=== PATIENT | female | born 1960 | race African-American/Black ===

== ENCOUNTER 2017-04-03 13:44 | Emergency (ER) | payer OTHER ==
[~2017-04-03] VITALS: Ht 165.1 cm; Wt 103.4 kg
[2017-04-03 13:57] VITALS: BP 141/81
== END 2017-04-03 15:43 | disposition home or self-care (01) ==
LOC: ER 13:44
DX: J02.9 Acute pharyngitis, unspecified (principal); D17.21 Benign lipomatous neoplasm of skin and subcutaneous tissue of right arm; Z88.0 Allergy status to penicillin; Z88.2 Allergy status to sulfonamides

== ENCOUNTER 2020-07-09 18:45 | Emergency (ER) | payer OTHER ==
[~2020-07-09] VITALS: Ht 167.6 cm; Wt 103.4 kg
[2020-07-09 19:29] LABS: Basophils # (auto) 0 10 ^3/uL (0-0.2); Basophils % (auto) 0.9 % (0.0-2.0); Eosinophils # (auto) 0.1 10 ^3/uL (0-0.8); Eosinophils % (auto) 1.8 % (0.0-7.0); Hematocrit 34.7 % (36.0-46.0); Lymphocytes # (auto) 1.7 10 ^3/uL (0.4-5.4); Lymphocytes % (auto) 32.4 % (10.0-50.0); Mean Corpuscular Hemoglobin 27.4 pg (28.0-32.0); Mean Corpuscular Hgb Conc. 31.9 g/dL (32.0-36.0); Mean Corpuscular Volume 85.9 fL (80.0-100.0); Monocytes # (auto) 0.3 10 ^3/uL (0-1.3); Monocytes % (auto) 6.7 % (0.0-12.0); Neutrophils % (auto) 58.2 % (37.0-80.0); Nucleated Red Blood Cells % 0.1 %; Platelet Count (auto) 219 10^3/uL (140-450); Red Blood Cells 4.03 10^6/uL (4.0-5.20); Red Cell Distribution Width 15.1 % (11.8-14.3); White Blood Cell 5.2 10^3/uL (4.4-10.8)
[2020-07-09 19:42] LABS: INR 0.97 (0.9-1.15)
[2020-07-09 19:43] LABS: Albumin 3.4 g/dL (3.4-5.0); Calcium 8.8 mg/dL (8.5-10.1); Potassium 3.4 mmol/L (3.5-5.1)
[2020-07-09 19:45] VITALS: BP 146/91
[2020-07-09 19:48] LABS: BUN/Creatinine Ratio 20.8; Bilirubin, Total 0.3 mg/dL (0.2-1.0); Total Protein 7.2 g/dL (6.4-8.2)
[2020-07-09] MEDS ORDERED: POTASSIUM EFFERVESENT TAB 25 MEQ PO ONE (20:00)
[2020-07-09] MEDS ORDERED: FUROSEMIDE 40 MG/4 ML VIAL IV ONE (20:30)
== END 2020-07-09 21:47 | disposition left against medical advice (07) ==
LOC: ER 18:48
DX: I11.0 Hypertensive heart disease with heart failure (principal); I50.9 Heart failure, unspecified; R06.09 Other forms of dyspnea; Z90.710 Acquired absence of both cervix and uterus
CPT/HCPCS: 36415; 71045; 80053; 83605; 83615; 83735; 83880; 84484; 85025; 85610; 93005; 96374; 99285; J1940

== ENCOUNTER 2020-09-09 07:21 | Inpatient (IN) | payer OTHER ==
[~2020-09-09] VITALS: Ht 162.6 cm; Wt 95.5 kg
[2020-09-09] MEDS ORDERED: MORPHINE SULFATE 4 MG/ML SYR/VIAL IV ONE (07:45)
[2020-09-09] MEDS ORDERED: ONDANSETRON HCL 4 MG/2 ML VIAL IV ONE (07:45)
[2020-09-09 08:18] LABS: Urine Bacteria NONE SEEN /hpf (None Seen); Urine Blood Negative /uL (Negative); Urine Specific Gravity 1.012 (1.001-1.035); Urine WBC <1 /hpf (0 - 5)
[2020-09-09 08:27] LABS: Basophils # (auto) 0 10 ^3/uL (0-0.2); Basophils % (auto) 0.6 % (0.0-2.0); Eosinophils # (auto) 0 10 ^3/uL (0-0.8); Eosinophils % (auto) 0.6 % (0.0-7.0); Hematocrit 34.5 % (36.0-46.0); Hemoglobin 11.1 g/dL (12.2-16.2); Lymphocytes # (auto) 0.8 10 ^3/uL (0.4-5.4); Lymphocytes % (auto) 18.5 % (10.0-50.0); Mean Corpuscular Hemoglobin 27.8 pg (28.0-32.0); Mean Corpuscular Hgb Conc. 32.2 g/dL (32.0-36.0); Mean Corpuscular Volume 86.4 fL (80.0-100.0); Monocytes # (auto) 0.2 10 ^3/uL (0-1.3); Monocytes % (auto) 5.5 % (0.0-12.0); Neutrophils # (auto) 3.2 10 ^3/uL (1.6-8.6); Neutrophils % (auto) 74.8 % (37.0-80.0); Nucleated Red Blood Cells % 0.1 %; Platelet Count (auto) 187 10^3/uL (140-450); Red Cell Distribution Width 14.7 % (11.8-14.3); White Blood Cell 4.3 10^3/uL (4.4-10.8)
[2020-09-09 08:37] LABS: Albumin 3.4 g/dL (3.4-5.0); Anion Gap 4 (5-15); Blood Urea Nitrogen 17 mg/dL (7-18); Calcium 9.1 mg/dL (8.5-10.1); Carbon Dioxide 25 mmol/L (21-32); Chloride 114 mmol/L (98-107); Glucose 108 mg/dL (74-106); Magnesium 2.2 mg/dL (1.6-2.6); Sodium 143 mmol/L (136-145)
[2020-09-09 08:41] LABS: INR 1.24 (0.9-1.15); Partial Thromboplastin Time 22.7 sec (23.0-31.2)
[2020-09-09 08:43] LABS: Alanine Aminotransferase 187 U/L (13-56); Alkaline Phosphatase 198 U/L (45-117); Aspartate Aminotransferase 107 U/L (15-37); BUN/Creatinine Ratio 23.9; Bilirubin, Total 0.4 mg/dL (0.2-1.0); GFR African American 108 mL/min; GFR Non-African American 89 mL/min; Total Protein 7.2 g/dL (6.4-8.2)
[2020-09-09] MEDS ORDERED: DEXTROSE (50%) 50ML SYRG IV PRN (10:45)
[2020-09-09] MEDS ORDERED: LACTULOSE 20Gm/30ML SOLN PO PRN ×2 (10:45)
[2020-09-09] MEDS ORDERED: PROMETHAZINE HCL 25 MG/ML 1ML IV PRN (10:45)
[2020-09-09] MEDS ORDERED: MORPHINE SULF INJ 2 MG/ML SYRINGE 1ML IV PRN (10:45)
[2020-09-09] MEDS ORDERED: NITROGLYCERIN 0.4 MG SL TAB SL PRN (10:45)
[2020-09-09] MEDS ORDERED: ACETAMINOPHEN 500 MG TAB PO PRN (11:15)
[2020-09-09] MEDS: InsuLIN REG 1unit/0.01ml Soln (100units/ml) SC SCH ×3 (11:30→21:55)
[2020-09-09 12:38] VITALS: BP 134/84
[2020-09-09 13:00] VITALS: BP 134/84
[2020-09-09 13:02] LABS: CRP High Sensitivity 1.62 mg/dL (< 0.3)
[2020-09-09] MEDS ORDERED: AMINLIQ64 OR (13:26)
[2020-09-09] MEDS ORDERED: FURO1TAB33 PO (13:26)
[2020-09-09] MEDS ORDERED: GABA100C9 PO (13:26)
[2020-09-09] MEDS ORDERED: ASPI300S PR (13:26)
[2020-09-09] MEDS: ACCU-CHEK COMFORT CURVE STRIP VI SCH ×3 (13:31→21:55)
[2020-09-09] MEDS: SODIUM CHLOR 0.9% PF (SALINE LOCK) 10ML VIAL/SYR IV SCH ×2 (13:32→21:54)
[2020-09-09] MEDS ORDERED: IOHEXOL 350 MG/ML 100ML IJ ONE (13:32)
[2020-09-09 13:56] LABS: Amphetamine Screen, Urine NEGATIVE (NEGATIVE); Barbiturate Scree,Urine NEGATIVE (NEGATIVE); Benzodiazephine Screen, Urine NEGATIVE (NEGATIVE); Cannabinoid Screen, Urine NEGATIVE (NEGATIVE); Cocaine Screen, Urine NEGATIVE (NEGATIVE); Opiate Scree,Urine NEGATIVE (NEGATIVE); Phencyclidine Screen, Urine NEGATIVE (NEGATIVE)
[2020-09-09] MEDS: MORPHINE SULF INJ 2 MG/ML SYRINGE 1ML IV PRN (15:25)
[2020-09-09 16:29] VITALS: BP 130/80
[2020-09-09] MEDS: SUCRALFATE 1 GM/10 ML ORAL SUSP PO SCH ×2 (18:20→22:10)
[2020-09-09 22:00] VITALS: BP 101/62
[2020-09-09] MEDS ORDERED: FAMOTIDINE 20 MG TAB PO SCH (22:00)
[2020-09-09] MEDS: CARVEDILOL 3.125 MG TAB PO SCH (22:10)
[2020-09-09] MEDS: PANTOPRAZOLE 40 MG TAB PO SCH (22:11)
[2020-09-09] MEDS: traMADol HCL 50 MG TAB PO PRN (22:12)
[2020-09-10] MEDS ORDERED: SALINE 0.65 % NASAL SPRAY 45ML BOTTLE EACHNOSTRI PRN (02:15)
[2020-09-10 05:00] VITALS: BP 134/83
[2020-09-10 05:35] LABS: Basophils # (auto) 0 10 ^3/uL (0-0.2); Basophils % (auto) 0.5 % (0.0-2.0); Eosinophils # (auto) 0.1 10 ^3/uL (0-0.8); Eosinophils % (auto) 1.7 % (0.0-7.0); Hematocrit 33.7 % (36.0-46.0); Lymphocytes # (auto) 1.1 10 ^3/uL (0.4-5.4); Lymphocytes % (auto) 30.3 % (10.0-50.0); Mean Corpuscular Hgb Conc. 32.6 g/dL (32.0-36.0); Monocytes # (auto) 0.3 10 ^3/uL (0-1.3); Monocytes % (auto) 8.1 % (0.0-12.0); Neutrophils # (auto) 2.1 10 ^3/uL (1.6-8.6); Neutrophils % (auto) 59.4 % (37.0-80.0); Nucleated Red Blood Cells % 0.1 %; Platelet Count (auto) 181 10^3/uL (140-450); Red Blood Cells 3.92 10^6/uL (4.0-5.20); Red Cell Distribution Width 15.1 % (11.8-14.3); White Blood Cell 3.6 10^3/uL (4.4-10.8)
[2020-09-10 05:53] LABS: % Iron Saturation 9.2 % (15-50); Albumin 3.1 g/dL (3.4-5.0); Calcium 8.8 mg/dL (8.5-10.1); INR 1.03 (0.9-1.15); Partial Thromboplastin Time 26.3 sec (23.0-31.2); Potassium 3.5 mmol/L (3.5-5.1)
[2020-09-10 05:59] LABS: BUN/Creatinine Ratio 18.9; Bilirubin, Total 0.4 mg/dL (0.2-1.0); Total Protein 6.6 g/dL (6.4-8.2)
[2020-09-10] MEDS: SODIUM CHLOR 0.9% PF (SALINE LOCK) 10ML VIAL/SYR IV SCH ×3 (06:26→21:46)
[2020-09-10] MEDS: ACCU-CHEK COMFORT CURVE STRIP VI SCH ×4 (06:26→21:46)
[2020-09-10] MEDS: InsuLIN REG 1unit/0.01ml Soln (100units/ml) SC SCH ×4 (06:27→21:46)
[2020-09-10] MEDS: traMADol HCL 50 MG TAB PO PRN ×2 (06:36→21:53)
[2020-09-10] MEDS: SUCRALFATE 1 GM/10 ML ORAL SUSP PO SCH ×4 (06:36→21:50)
[2020-09-10 09:00] VITALS: BP 130/74
[2020-09-10] MEDS ORDERED: ASPirin 81 mg TAB PO SCH (10:00)
[2020-09-10] MEDS: ENOXAPARIN SOD 40 MG/0.4 ML SYRINGE SC SCH (10:00)
[2020-09-10] MEDS: NITROGLYCERIN 0.2MG/HR TOPICAL PATCH TD SCH (10:00)
[2020-09-10] MEDS ORDERED: ENALAPRIL MALEATE 2.5 MG TAB PO SCH (10:00)
[2020-09-10] MEDS: CARVEDILOL 3.125 MG TAB PO SCH ×2 (10:23→22:49)
[2020-09-10] MEDS ORDERED: ANGIOMAX 250 MG VIAL IV ONE (12:25)
[2020-09-10] MEDS ORDERED: HEPARIN SODIUM (PORCINE) 5000 UNITS/ML 1ML VIAL ONE (12:25)
[2020-09-10] MEDS ORDERED: MIDAZOLAM HCL 1MG/1ML-2 ML VIAL ONE (12:26)
[2020-09-10] MEDS ORDERED: IOHEXOL 350 MG/ML 100ML IJ ONE (12:26)
[2020-09-10] MEDS ORDERED: SODIUM CHL 0.9% 0 ML ONE (12:26)
[2020-09-10] MEDS ORDERED: fentaNYL CITRATE 100 MCG/2 ML VL ONE (12:26)
[2020-09-10] MEDS ORDERED: VERAPAMIL 2.5MG/ML INJ 2ML VIAL IV ONE (12:26)
[2020-09-10] MEDS ORDERED: LIDOCAINE 2%HCL (LOCAL ANESTH.) INJ 20ML MDV ONE (12:26)
[2020-09-10] MEDS ORDERED: IODIXANOL 320MG/ML 100ML BTL IV ONE (12:27)
[2020-09-10] MEDS: POTASSIUM CHL 20 Meq TABLET PO SCH (15:51)
[2020-09-10] MEDS: PANTOPRAZOLE 40 MG TAB PO SCH ×2 (15:51→21:50)
[2020-09-10] MEDS: ASPirin 81 mg TAB PO SCH (15:52)
[2020-09-10 17:00] VITALS: BP 114/58
[2020-09-10] MEDS: FUROSEMIDE 40 MG/4 ML VIAL IV SCH (17:05)
[2020-09-10] MEDS ORDERED: FUROSEMIDE 20 MG TAB PO PRN ×2 (17:45→18:00)
[2020-09-10] MEDS: MAGNESIUM OXIDE 400 MG TAB PO SCH (21:50)
[2020-09-10 22:00] VITALS: BP 111/69
[2020-09-10] MEDS: SACUBITRIL-VALSARTAN 24mg/26mg TAB PO SCH (22:00)
[2020-09-11 05:00] VITALS: BP_SYST 109; BP_SYST 119; BP_DIAS 70; BP_DIAS 77
[2020-09-11] MEDS: SODIUM CHLOR 0.9% PF (SALINE LOCK) 10ML VIAL/SYR IV SCH ×3 (05:08→21:34)
[2020-09-11] MEDS: MORPHINE SULF INJ 2 MG/ML SYRINGE 1ML IV PRN (05:09)
[2020-09-11] MEDS: SUCRALFATE 1 GM/10 ML ORAL SUSP PO SCH ×4 (06:38→21:34)
[2020-09-11] MEDS: InsuLIN REG 1unit/0.01ml Soln (100units/ml) SC SCH ×4 (06:40→21:44)
[2020-09-11] MEDS: ACCU-CHEK COMFORT CURVE STRIP VI SCH ×4 (06:40→21:36)
[2020-09-11 06:53] LABS: Basophils # (auto) 0 10 ^3/uL (0-0.2); Basophils % (auto) 0.9 % (0.0-2.0); Eosinophils # (auto) 0.1 10 ^3/uL (0-0.8); Hematocrit 36.1 % (36.0-46.0); Hemoglobin 11.8 g/dL (12.2-16.2); Lymphocytes # (auto) 0.9 10 ^3/uL (0.4-5.4); Mean Corpuscular Hemoglobin 27.8 pg (28.0-32.0); Mean Corpuscular Hgb Conc. 32.6 g/dL (32.0-36.0); Mean Corpuscular Volume 85.2 fL (80.0-100.0); Monocytes # (auto) 0.4 10 ^3/uL (0-1.3); Monocytes % (auto) 15.2 % (0.0-12.0); Neutrophils # (auto) 1.2 10 ^3/uL (1.6-8.6); Neutrophils % (auto) 44.9 % (37.0-80.0); Nucleated Red Blood Cells % 0.3 %; Platelet Count (auto) 181 10^3/uL (140-450); Red Blood Cells 4.23 10^6/uL (4.0-5.20); White Blood Cell 2.6 10^3/uL (4.4-10.8)
[2020-09-11 07:16] LABS: Potassium 3.5 mmol/L (3.5-5.1)
[2020-09-11 07:22] LABS: Albumin 3.2 g/dL (3.4-5.0); BUN/Creatinine Ratio 21.4
[2020-09-11 07:34] LABS: Bilirubin, Total 0.4 mg/dL (0.2-1.0); Total Protein 7.2 g/dL (6.4-8.2)
[2020-09-11 09:00] VITALS: BP 112/71
[2020-09-11] MEDS ORDERED: LACTULOSE 20Gm/30ML SOLN PO PRN (09:15)
[2020-09-11] MEDS ORDERED: TEMAZEPAM 15 MG CAP PO PRN (09:15)
[2020-09-11] MEDS ORDERED: LACTULOSE 20Gm/30ML SOLN PO ONE (09:15)
[2020-09-11] MEDS: MAGNESIUM OXIDE 400 MG TAB PO SCH ×2 (09:29→21:36)
[2020-09-11] MEDS: ENOXAPARIN SOD 40 MG/0.4 ML SYRINGE SC SCH (09:29)
[2020-09-11] MEDS: ASPirin 81 mg TAB PO SCH (09:30)
[2020-09-11] MEDS: FUROSEMIDE 40 MG/4 ML VIAL IV SCH (09:30)
[2020-09-11] MEDS: POTASSIUM CHL 20 Meq TABLET PO SCH (09:30)
[2020-09-11] MEDS: PANTOPRAZOLE 40 MG TAB PO SCH ×2 (09:31→21:35)
[2020-09-11] MEDS: CARVEDILOL 3.125 MG TAB PO SCH ×2 (09:31→21:35)
[2020-09-11] MEDS: NITROGLYCERIN 0.2MG/HR TOPICAL PATCH TD SCH (09:35)
[2020-09-11] MEDS: SPIRONOLACTONE 25 MG TAB PO SCH ×2 (09:38→17:49)
[2020-09-11] MEDS: SACUBITRIL-VALSARTAN 24mg/26mg TAB PO SCH ×2 (10:00→21:36)
[2020-09-11] MEDS ORDERED: SPIRONOLACTONE 25 MG TAB PO SCH (10:00)
[2020-09-11 13:00] VITALS: BP 109/79
[2020-09-11 17:00] VITALS: BP 104/65
[2020-09-11] MEDS ORDERED: ACETAMINOPHEN 500 MG TAB PO ONE (17:45)
[2020-09-11 21:31] VITALS: BP 123/71
[2020-09-12 04:53] VITALS: BP 97/60
[2020-09-12 05:59] LABS: Basophils # (auto) 0 10 ^3/uL (0-0.2); Basophils % (auto) 0.6 % (0.0-2.0); Eosinophils # (auto) 0.1 10 ^3/uL (0-0.8); Eosinophils % (auto) 3.1 % (0.0-7.0); Hematocrit 41.5 % (36.0-46.0); Hemoglobin 13.4 g/dL (12.2-16.2); Lymphocytes # (auto) 0.9 10 ^3/uL (0.4-5.4); Lymphocytes % (auto) 35.3 % (10.0-50.0); Mean Corpuscular Hemoglobin 27.7 pg (28.0-32.0); Mean Corpuscular Hgb Conc. 32.2 g/dL (32.0-36.0); Mean Corpuscular Volume 86.2 fL (80.0-100.0); Monocytes # (auto) 0.4 10 ^3/uL (0-1.3); Monocytes % (auto) 14.8 % (0.0-12.0); Neutrophils # (auto) 1.2 10 ^3/uL (1.6-8.6); Neutrophils % (auto) 46.2 % (37.0-80.0); Nucleated Red Blood Cells % 0.3 %; Platelet Count (auto) 196 10^3/uL (140-450); Red Blood Cells 4.82 10^6/uL (4.0-5.20); Red Cell Distribution Width 14.6 % (11.8-14.3); White Blood Cell 2.7 10^3/uL (4.4-10.8)
[2020-09-12] MEDS: SPIRONOLACTONE 25 MG TAB PO SCH (06:00)
[2020-09-12 06:07] LABS: Potassium 3.8 mmol/L (3.5-5.1)
[2020-09-12 06:16] LABS: Albumin 3.3 g/dL (3.4-5.0); Bilirubin, Total 0.3 mg/dL (0.2-1.0); Calcium 9.7 mg/dL (8.5-10.1); Total Protein 7.5 g/dL (6.4-8.2)
[2020-09-12] MEDS: SODIUM CHLOR 0.9% PF (SALINE LOCK) 10ML VIAL/SYR IV SCH (06:22)
[2020-09-12] MEDS: InsuLIN REG 1unit/0.01ml Soln (100units/ml) SC SCH (06:23)
[2020-09-12] MEDS: SUCRALFATE 1 GM/10 ML ORAL SUSP PO SCH (06:23)
[2020-09-12] MEDS: ACCU-CHEK COMFORT CURVE STRIP VI SCH (06:23)
[2020-09-12 09:00] VITALS: BP 120/69
[2020-09-12] MEDS: NITROGLYCERIN 0.2MG/HR TOPICAL PATCH TD SCH (10:00)
[2020-09-12 10:06] VITALS: BP 120/69
[2020-09-12] MEDS: FUROSEMIDE 40 MG/4 ML VIAL IV SCH (10:08)
[2020-09-12] MEDS: ASPirin 81 mg TAB PO SCH (10:08)
[2020-09-12] MEDS: MAGNESIUM OXIDE 400 MG TAB PO SCH (10:09)
[2020-09-12] MEDS: POTASSIUM CHL 20 Meq TABLET PO SCH (10:09)
[2020-09-12] MEDS: CARVEDILOL 3.125 MG TAB PO SCH (10:09)
[2020-09-12] MEDS: SACUBITRIL-VALSARTAN 24mg/26mg TAB PO SCH (10:09)
[2020-09-12] MEDS: PANTOPRAZOLE 40 MG TAB PO SCH (10:10)
[2020-09-12] MEDS: ENOXAPARIN SOD 40 MG/0.4 ML SYRINGE SC SCH (10:10)
[2020-09-12 13:01] VITALS: BP 97/71
[2020-09-13 11:17] LABS: Hepatitis B Surface Antibody Negative
[2020-09-13 11:54] LABS: Hepatitis A Total Antibody Positive
[2020-09-13 12:18] LABS: Hepatitis B Core Total AB Negative; Hepatitis B Surface Antigen Negative (Negative); Hepatitis C Antibody Negative (Negative)
== END 2020-09-12 12:20 | disposition home or self-care (01) | DRG 192 ==
LOC: ER 07:21 → TELE 10:31 → TELE-CENTR 12:16
PROVIDERS: ADMIT Internal Medicine; ATTEND Internal Medicine
PROC: 4A023N7 Measurement of Cardiac Sampling and Pressure, Left Heart, Percutaneous Approach (ICD-10-PCS; principal; 2020-09-10)
PROC: B2111ZZ Fluoroscopy of Multiple Coronary Arteries using Low Osmolar Contrast (ICD-10-PCS; 2020-09-10)
PROC: B2151ZZ Fluoroscopy of Left Heart using Low Osmolar Contrast (ICD-10-PCS; 2020-09-10)
DX: I11.0 Hypertensive heart disease with heart failure (principal); I42.9 Cardiomyopathy, unspecified; D68.9 Coagulation defect, unspecified; R13.10 Dysphagia, unspecified; E11.9 Type 2 diabetes mellitus without complications; D50.9 Iron deficiency anemia, unspecified; I50.43 Acute on chronic combined systolic (congestive) and diastolic (congestive) heart failure; D63.8 Anemia in other chronic diseases classified elsewhere; E66.9 Obesity, unspecified; D72.819 Decreased white blood cell count, unspecified; Z20.822 Contact with and (suspected) exposure to COVID-19; K20.90 Esophagitis, unspecified without bleeding; K29.70 Gastritis, unspecified, without bleeding; F10.10 Alcohol abuse, uncomplicated; Z79.899 Other long term (current) drug therapy; Z80.1 Family history of malignant neoplasm of trachea, bronchus and lung; Z82.49 Family history of ischemic heart disease and other diseases of the circulatory system; Z83.3 Family history of diabetes mellitus; Z86.16 Personal history of COVID-19; Z90.710 Acquired absence of both cervix and uterus; Z88.0 Allergy status to penicillin; Z88.2 Allergy status to sulfonamides
CPT/HCPCS: 36415; 71045; 71275; 76705; 80053; 80061; 80307; 81001; 82150; 82550; 82962; 83036; 83540; 83550; 83690; 83735; 83880; 84443; 84484; 85025; 85379; 85610; 85730; 86038; 86141; 86704; 86706; 86708; 86803; 86850; 86900; 86901; 87340; 87426; 93005; 93306; 93458; 93970; 96374; 96375; 99152; G0378; J1815; J2250; J2405; Q9967

== ENCOUNTER 2020-12-02 13:45 | Emergency (ER) | payer MEDICAID ==
[~2020-12-02] VITALS: Ht 165.1 cm; Wt 102.1 kg
[~2020-12-02 13:45] MED LIST: AMINLIQ64 OR; ASPI300S PR; FURO1TAB33 PO; GABA100C9 PO
[2020-12-02 13:56] VITALS: BP 102/67
== END 2020-12-02 15:23 | disposition home or self-care (01) ==
LOC: ER 13:45
DX: D17.21 Benign lipomatous neoplasm of skin and subcutaneous tissue of right arm (principal); I10 Essential (primary) hypertension; Z90.710 Acquired absence of both cervix and uterus; Z88.0 Allergy status to penicillin; Z88.2 Allergy status to sulfonamides

== ENCOUNTER 2022-10-07 12:31 | Emergency (ER) | payer MEDICAID, OTHER ==
[~2022-10-07] VITALS: Ht 162.6 cm; Wt 97.0 kg
[~2022-10-07 12:31] MED LIST changes: +GABA-1308 PO; -GABA100C9 PO
[2022-10-07 13:14] VITALS: BP 116/74
[2022-10-07] MEDS ORDERED: KETOROLAC TROMETH 60MG/2ML VIAL IM ONE (14:15)
[2022-10-07] MEDS ORDERED: IBUP-1456 PO (15:56)
[2022-10-07] MEDS ORDERED: HYDR-4798 PO (16:05)
== END 2022-10-07 16:17 | disposition home or self-care (01) ==
LOC: ER 12:31
DX: S92.324A Nondisplaced fracture of second metatarsal bone, right foot, initial encounter for closed fracture (principal); S92.334A Nondisplaced fracture of third metatarsal bone, right foot, initial encounter for closed fracture; S92.344A Nondisplaced fracture of fourth metatarsal bone, right foot, initial encounter for closed fracture; S80.02XA Contusion of left knee, initial encounter; V43.62XA Car passenger injured in collision with other type car in traffic accident, initial encounter; Y93.89 Activity, other specified; Y92.89 Other specified places as the place of occurrence of the external cause; Y99.8 Other external cause status
CPT/HCPCS: 29515; 73562; 73630; 96372; 99284; J1885

== ENCOUNTER 2023-01-07 11:30 | Emergency (ER) | payer MEDICAID, OTHER ==
[~2023-01-07] VITALS: Ht 165.1 cm; Wt 97.7 kg
[~2023-01-07 11:30] MED LIST changes: +HYDR-4798 PO; +IBUP-1456 PO
[2023-01-07 12:50] LABS: Urine Bacteria FEW /hpf (None Seen); Urine Blood TRACE /uL (Negative); Urine Clarity HAZY (Clear); Urine Color Yellow (Yellow); Urine Protein, UAD 1+ (Negative); Urine Specific Gravity 1.016 (1.001-1.035); Urine Urobilinogen Normal (Negative); Urine WBC 137 /hpf (0 - 5); Urine pH 7.5 (5.0-8.0)
[2023-01-07] MEDS ORDERED: CIPR-173 PO (13:03)
[2023-01-07 13:11] VITALS: BP 165/90; PULSE 82; RESP 17; TEMP 97.6; O2SAT 97
[2023-01-07] MEDS ORDERED: CIPROFLOXACIN HCL 500 MG TAB PO ONE (13:15)
== END 2023-01-07 13:16 | disposition home or self-care (01) ==
LOC: ER 11:30
DX: N39.0 Urinary tract infection, site not specified (principal); I10 Essential (primary) hypertension; E78.5 Hyperlipidemia, unspecified; Z90.710 Acquired absence of both cervix and uterus; Z79.82 Long term (current) use of aspirin; Z79.1 Long term (current) use of non-steroidal anti-inflammatories (NSAID); Z79.899 Other long term (current) drug therapy; Z88.0 Allergy status to penicillin; Z88.2 Allergy status to sulfonamides
CPT/HCPCS: 81001